=== PATIENT | female | born 1990 | race Caucasian/White ===

== ENCOUNTER 2019-04-09 07:45 | Inpatient (IN) | payer BC ==
[2019-04-07 14:36] LABS: ABS Eosinophils 0.1 10^3/ul (0-0.6); ABS Lymphocytes 1.5 10^3/ul (1.0-4.8); ABS Monocytes 0.8 10^3/ul (0-0.8); ABS Neutrophils 10.5 10^3/ul (1.5-7.7); Eosinophil % 0.4 %; Hematocrit 32 % (35-47); Hemoglobin 10.7 g/dL (12.0-16.0); Lymphocyte % 11.7 %; Mean Corpuscular HGB Conc 34 g/dL (31-36); Mean Corpuscular Hemoglobin 31 pg (27-31); Mean Corpuscular Volume 91 fL (80-97); Mean Platelet Volume 8.1 fL (7.4-10.4); Platelet Count 285 10^3/uL (150-450); Red Blood Count 3.47 10^6 /uL (3.70-4.87); Red Cell Distribution Width 13 % (10-15); White Blood Count 12.9 10^3/uL (3.5-10.8)
[2019-04-09] MEDS ORDERED: ceFOXitin 2 GM IVPREMIX* 2 GM/50 ML BAG IVPB ONE (08:04)
[2019-04-09] MEDS ORDERED: Buffered Lidocaine 1% SYRIN* 1 ML/SYRINGE INTRADERM ONE (08:04)
[2019-04-09] MEDS ORDERED: Lactated Ringers 1000 ML Bag* 1,000 ML IV ONE (08:04)
--- NOTE | 2019-04-09 08:14 | HP ---
General Information - Reason for Visit Patient is a 28 y/o with prior extensive myomectomy, at 37 weeks, GDMA1, post Steroids 1 week ago. She is scheduled for a delivery due to prior Uterine scar from her myomectomy. - General Information Maternal Age: 28 Grav: 1 Para: 0 SAB: 0 IEA: 0 Estimated Due Date: 04/25/19 Determined By: LMP Gestational Age in Weeks/Days: 37 5/7 Maternal Blood Type and Rh: A Positive - Results this Serology/RPR Result: Non-Reactive Rubella Result: Immune HBsAg Result: Negative HIV Result: Negative GBS Culture Result: Negative Past Medical History Delivery History: See Records - IVF , Prior Myomectomy, GDMA1 Pertinent Past Medical History: See Records Pertinent Past Surgical History: See Records - Laparoscopic myomectomy 2018 Pertinent Family History: See Records - Antepartal Records Antepartal Records: Reviewed, Complicated by: - GDMA1 and prior myomectomy Review of Systems Constitutional: Comfortable CV Complaint: No Respiratory: Shortness of Breath: No Gastrointestinal: No Nausea/Vomiting, Normal Bowel Movement Genitourinary: No Dysuria, No Bleeding, No Leaking Fluid Musculoskeletal: No Complaint, No Epigastric Pain Neurological: No Headache, No Visual Changes Movement: Normal Exam Allergies/Adverse Reactions: Allergies No Known Allergies Allergy (Verified 04/07/19 15:19) Temp 98.7 P 72 BP118/76 RR 20 Lab Values - Entire Visit: Laboratory Tests 04/07/19 04/07/19 14:00 14:00 WBC 12.9 H RBC 3.47 L Hgb 10.7 L Hct 32 L MCV 91 MCH 31 MCHC 34 RDW 13 Plt Count 285 MPV 8.1 Neut % (Auto) 81.4 Lymph % (Auto) 11.7 Collier % (Auto) 6.3 Eos % (Auto) 0.4 Baso % (Auto) 0.2 Absolute Neuts (auto) 10.5 H Absolute Lymphs (auto) 1.5 Absolute Monos (auto) 0.8 Absolute Eos (auto) 0.1 Absolute Basos (auto) 0.0 Absolute Nucleated RBC 0.0 Nucleated RBC % 0.0 Blood Type A Positive Antibody Screen Negative - Measurements Height: 5 ft 8 in Weight: 201 lb Weight in lbs: 180.182175 Body Mass Index (BMI): 30.5 Pre- Weight: 180 lb - Exam Breast: Breast Exam Deferred CVA: No CVA Tenderness Extremities: No Edema Heart: Normal Rhythm/Heart Sounds HEENT: No Significant Findings Lungs: Clear Bilaterally Rectal: Rectal Exam Deferred Reflexes: DTR 2+ Thyroid: No Thyromegaly - Abdominal Exam Abdomen Exam: Non-Tender, Fundal Height Consistent with Dates - Ultrasound/Biophysical Profile Ultrasound Status: Not Done Targeted Exam Findings See L&D Outpatient Visit Provider Note for Findings: N/A Cervical Exam: Closed Effacement: <50% Presenting Part: Vertex Membrane Status: Intact Bleeding/Discharge: None EFM Findings - External Monitor Findings Baseline Heart Rate: 150 Contractions: None Assessment/Plan - Assessment ay 37 5/7 weeks, prior myomectomy, GDMA1. - Obstetrical Risk Factors Obstetrical Risk Factors: Gestational Diabetes - GDMA1 - Plan Plan: IV Hydration, Antibiotic Prophylaxis, C/S Delivery
[2019-04-09] MEDS ORDERED: Lactated Ringers 1000 ML Bag* 1,000 ML IV SCH ×2 (09:00→15:00)
[2019-04-09 10:37] LABS: Urine Benzodiazepine Screen None Detected (None Detect); Urine Opiates Screen None Detected (None Detect)
[2019-04-09] MEDS ORDERED: Ketorolac INJ* 30 MG/ML 1 ML VIAL ONE (10:59)
[2019-04-09] MEDS ORDERED: Ondansetron INJ* 2 MG/ML VIAL ONE (10:59)
[2019-04-09] MEDS ORDERED: OXYTOCIN* 10 UNITS/ML 1 ML VIAL ONE (10:59)
[2019-04-09] MEDS ORDERED: Morphine PF AMP (0.5MG/ML)* 5 MG/10 ML AMP ONE (11:00)
[2019-04-09] MEDS ORDERED: Acetaminophen IV 1GM/100ML * 1,000 MG/100 ML VIAL IVPB ONE (13:39)
[2019-04-09] MEDS ORDERED: DiMENhydriNATE IV* 50 MG/ML VIAL IV PUSH PRN (13:39)
[2019-04-09] MEDS ORDERED: HYDROmorphone INJ1* 1 MG/ML SYRINGE IV PRN (13:39)
[2019-04-09] MEDS ORDERED: Naloxone* 0.4 MG/ML 1 ML VIAL IV PRN ×2 (13:39→13:40)
[2019-04-09] MEDS ORDERED: oxyCODONE TAB* 5 MG TAB PO PRN (13:39)
[2019-04-09] MEDS ORDERED: Ondansetron INJ* 2 MG/ML VIAL IV PRN (13:40)
[2019-04-09] MEDS ORDERED: Nalbuphine* 10 MG/ML 1 ML VIAL IV PRN (13:40)
[2019-04-09] MEDS ORDERED: oxyCODONE/Acetamin 5/325 MG* TAB PO PRN (13:45)
[2019-04-09] MEDS ORDERED: Phenylephrine 40 MCG/ML SYRINGE ONE (13:48)
[2019-04-09] MEDS ORDERED: EPHEDrine (Pressors)* 50 MG/ML VIAL ONE (13:48)
[2019-04-09] MEDS ORDERED: Glycerin ADULT SUPP PR PRN (14:09)
[2019-04-09] MEDS ORDERED: Witch Hazel PAD* JAR TOPICAL PRN (14:09)
[2019-04-09] MEDS ORDERED: Dibucaine 1% 28.35 GM TUBE PR PRN (14:09)
[2019-04-09] MEDS ORDERED: Ibuprofen TAB* 600 MG PO SCH (19:45)
[2019-04-09] MEDS ORDERED: Ketorolac INJ* 30 MG/ML 1 ML VIAL IV SCH (19:45)
[2019-04-09] MEDS: Docusate CAP* 100 MG PO SCH (20:53)
[2019-04-09] MEDS: Simethicone TAB* 80 MG TAB.CHEW PO SCH (20:54)
--- NOTE | 2019-04-10 02:57 | OP ---
OPERATIVE REPORT: DATE OF OPERATION: 04/09/19 DATE OF : 86 SURGEON: Carlos Mcneil MD PARAFFIN MACHINE OPERATOR: Tracie Alcazar, certified mortician. ANESTHESIA: Spinal. PRE-OP DIAGNOSIS: at 37 weeks with prior uterine myomectomy. POST-OP DIAGNOSIS: at 37 weeks with prior uterine myomectomy. OPERATIVE PROCEDURE: Primary low transverse section. ESTIMATED BLOOD LOSS: 600 cc. SPECIMEN SENT TO PATHOLOGY: Cord blood. IV FLUIDS: She received 2400 cc of IV crystalloid fluid. URINE OUTPUT: Clear. FINDINGS: Delivery of a male infant, weighing 6 pounds and 11 ounces with clear amniotic fluid with Apgars of 9 and 9. The head was delivered with vacuum assistant auto center manager. The uterus was noted to have findings consistent with a prior myomectomy. The adnexa, bowel, and bladder were within normal limi ts. There were no complications during this procedure. The patient's lower uterine segment, anterior uterine wall, and left fundal uterine wall were thinned and concaved due to her prior myomectomy. DESCRIPTION OF PROCEDURE: The patient was taken to the operating room where she was identified. She was placed on the operating table, where a spinal anesthetic was obtained without difficulty. She w as then placed in the supine position with a leftward tilt, prepped and draped in the normal sterile fashion. A Pfannenstiel skin incision was made with a knife and carried through to the underlying la herman of fascia. The fascia was nicked in the midline, extended laterally with curved Street scissors. The fascia was then grasped superiorly and inferiorly with Layla clamps and dissected off sharply fr om the rectus muscle. The rectus muscles were in the midline bluntly. The peritoneum was identified, grasped with pickups, and entered sharply with Metzenbaum scissors and extended superiorl y and inferiorly sharply. A bladder blade was inserted into the patient's abdomen. A bladder flap w as created using Metzenbaum scissors over which the bladder blade was then reinserted. A low-transve rse uterine incision was then made with a knife. The uterine incision was extended laterally with ban dage scissors. The amniotic sac was ruptured. The infant's head was then grasped. It was noted to be in an asynclitic presentation, which was then brought up to the incision. Vacuums were then attac hed to the 's head and the 's head was then delivered with vacuum assistance atraumatical ly. The vacuum was removed. The rest of the infant's body was then delivered. The cord was clamped and cut, and the was then handed off to awaiting crushed stone grader. Cord bloods were obtained. T he placenta was removed manually. The uterus was then exteriorized, cleared of all clot and debris u sing moist laparotomy sponges. The uterine incision was then closed with 0 Polysorb suture in a runn ing locked fashion with a second imbricating layer of 0 Polysorb suture with good hemostasis noted. The uterus was then returned to the patient's abdomen. The gutters were then cleared of all clots an d debris using moist laparotomy sponges. All the sponges were removed from the patient's abdomen. Th e peritoneum was then closed using 2-0 Polysorb suture in a running fashion. The fascia was closed u sing 0 Polysorb suture in a running fashion. The skin was closed with a 4-[address] itch. The patient tolerated the procedure well. Sponge, lap, and needle counts were correct x2. Sh mario was then transferred to the recovery room area in stable condition. [id number] #: [id number]
[2019-04-10] MEDS ORDERED: oxyCODONE/Acetamin 5/325 MG* TAB PO PRN ×2 (05:00)
[2019-04-10] MEDS: Simethicone TAB* 80 MG TAB.CHEW PO SCH ×5 (06:39→21:26)
[2019-04-10] MEDS: Acetaminophen TAB* 325 MG PO PRN ×3 (06:47→18:54)
[2019-04-10 07:58] LABS: ABS Basophils 0.1 10^3/ul (0-0.2); ABS Eosinophils 0.1 10^3/ul (0-0.6); ABS Lymphocytes 1.5 10^3/ul (1.0-4.8); ABS Monocytes 0.9 10^3/ul (0-0.8); ABS Neutrophils 9.1 10^3/ul (1.5-7.7); Eosinophil % 0.4 %; Hematocrit 28 % (35-47); Hemoglobin 9.5 g/dL (12.0-16.0); Lymphocyte % 12.6 %; Mean Corpuscular HGB Conc 34 g/dL (31-36); Mean Corpuscular Hemoglobin 31 pg (27-31); Mean Corpuscular Volume 92 fL (80-97); Mean Platelet Volume 7.5 fL (7.4-10.4); Nucleated Red Blood Cells % 0.1; Platelet Count 206 10^3/uL (150-450); Red Blood Count 3.06 10^6 /uL (3.70-4.87); Red Cell Distribution Width 14 % (10-15); White Blood Count 11.5 10^3/uL (3.5-10.8)
[2019-04-10] MEDS: Ibuprofen TAB* 600 MG PO PRN ×3 (09:04→21:26)
[2019-04-10] MEDS: Docusate CAP* 100 MG PO SCH ×3 (09:05→21:26)
[2019-04-10] MEDS: Ferrous Gluconate TAB* 324 MG TAB PO SCH ×2 (09:05→21:26)
[2019-04-10] MEDS ORDERED: Zolpidem TAB* 5 MG PO PRN (21:00)
[2019-04-11] MEDS: Acetaminophen TAB* 325 MG PO PRN ×3 (04:22→17:51)
[2019-04-11] MEDS: Ibuprofen TAB* 600 MG PO PRN ×2 (04:22→11:59)
[2019-04-11] MEDS: Ferrous Gluconate TAB* 324 MG TAB PO SCH ×2 (09:35→19:42)
[2019-04-11] MEDS: Docusate CAP* 100 MG PO SCH ×3 (09:35→19:42)
[2019-04-11] MEDS: Simethicone TAB* 80 MG TAB.CHEW PO SCH ×4 (09:36→19:42)
--- NOTE | 2019-04-11 09:54 | PTEDU ---
Patient Name: JUNE ESCOTO JUNE ESCOTO selected video: Follow Me Mum: The [employer] to Successful to view on 12/2018 at 9:53:22 AM from [id number]
[2019-04-12] MEDS: Acetaminophen TAB* 325 MG PO PRN (04:10)
[2019-04-12] MEDS: Ibuprofen TAB* 600 MG PO PRN (04:10)
[2019-04-12 08:53] VITALS: BP 132/74
[2019-04-12] MEDS: Ferrous Gluconate TAB* 324 MG TAB PO SCH (08:53)
[2019-04-12] MEDS: Docusate CAP* 100 MG PO SCH (08:53)
[2019-04-12] MEDS: Simethicone TAB* 80 MG TAB.CHEW PO SCH (08:53)
== END 2019-04-12 09:25 | disposition home or self-care (01) | DRG 540 ==
LOC: MCHOB 08:52
PROVIDERS: ADMIT Obstetrics & Gynecology; ATTEND Obstetrics & Gynecology
PROC: 10D00Z1 Extraction of Products of Conception, Low, Open Approach (ICD-10-PCS; principal; 2019-04-09 11:00)
DX: O24.429 Gestational diabetes mellitus in childbirth, unspecified control (principal); O75.89 Other specified complications of labor and delivery; O34.29 Maternal care due to uterine scar from other previous surgery; O90.81 Anemia of the puerperium; D64.9 Anemia, unspecified; Z3A.37 37 weeks gestation of pregnancy; Z37.0 Single live birth
CPT/HCPCS: 36415; 80307; 85025; 86850; 86900; 86901; A9270-GY; J0694; J1885; J2405; J2590